=== PATIENT | male | born 1990 | race Caucasian/White ===

== ENCOUNTER 2016-09-14 03:54 | Emergency (ER) | payer BC ==
[~2016-09-14] VITALS: Ht 177.8 cm; Wt 99.8 kg
[~2016-09-14 03:54] MED LIST: ACHD5005 PO; AZIT-21 PO; BETABLOCKER; CETI-156 PO; CETI10CA PO; CYCL10TA9 PO; ENAL2.5T PO; LISI40TA PO; MELO-170 PO; METH4TAB PO; METO-333; METO25TA2 PO; NAPR-243 PO; NAPR550T PO; NF-METHYLP PO; ONDAN4ODT PO; PRD10T PO; PRM25T PO; SULF1TAB35 PO; SULF1TAB38 PO; TAMS0.4C98 PO
[2016-09-14] MEDS ORDERED: CIPR2.5D2 (04:07)
[2016-09-14] MEDS ORDERED: CLAR-19 (04:07)
[2016-09-14] MEDS ORDERED: LIDOCAINE 2% VISCOUS 15 ML UDC PO ONE (04:15)
[2016-09-14] MEDS ORDERED: ANTACID SUSP 30 ML UDC (MYLANTA) PO ONE (04:15)
--- NOTE | 2016-09-14 04:38 | ED Chest Pain ---
General Chief Complaint: Cardiac/General Problems Stated Complaint: NOT FEELING WELL,HEART HURTS Nursing Triage Note: SHARP EPIGASTRIC PAIN X2 HRS. "IMPROVES WITH BURPING." Nursing Sepsis Screen: No Definite Risk Source: patient History of Present Illness Time seen by provider: 04:10 Initial Comments PT ARRIVES VIA POV FROM HOME STATES HE IS HAVING "SHARP PAINS IN MY CHEST" --POINTS TO EPIGASTRIC AREA AND UPPER STERNAL AND UPPER LEFT CHEST PAIN BEGAN 2 HOURS AGO--WOKE HIM UP ALSO C/O SLIGHT SHORTNESS OF BREATH C/O NAUSEA,NO VOMITING NO PAIN NOW NO HISTORY OF SIMILAR NO COUGH NO SWELLING IN LEGS/ FEET OR PAIN IN CALVES HAS HAD HAD FEVER OF 101 C/O BILATERAL EAR PAIN SINCE Tuesday09/09/16 SEEN AT [facility] TODAY AND GIVEN RX FOR CLARITHROMYCIN--HAS NEVER TAKEN BEFORE PCP: DR. ZULUAGA Allergies and Home Medications Allergies Coded Allergies: Amoxicillin Trihydrate (Unverified Allergy, Intermediate, HIVES, 08/28/10) Potassium Clavulanate (Unverified Allergy, Intermediate, HIVES, 08/28/10) Doxycycline (Unverified Allergy, Mild, RAPID HR, FELT WEIRD, 08/28/10) Home Medications Cefdinir 300 Mg Capsule, 300 MG PO BID, #20 Prescribed by: YESENIA SOOD on 09/14/16 0530 Ciprofloxacin HCl 2.5 Ml Drops, #5 (Reported) Clarithromycin 500 Mg Tablet, #20 (Reported) Metoprolol Tartrate 25 Mg Tablet, #90 (Reported) Pantoprazole Sodium 40 Mg Tablet.dr, 40 MG PO DAILY, #15 Prescribed by: YESENIA SOOD on 09/14/16 0530 Review of Systems Constitutional: see HPI, fever EENTM: See HPI, Ear Pain, No Nose Congestion, No Throat Pain Respiratory: See HPI, Denies Cough, Shortness of Air Cardiovascular: See HPI, Chest Pain, Denies Edema, Denies Lightheadedness, Denies Palpitations, Denies Syncope Gastrointestinal: See HPI, Abdominal Pain, Nausea, Denies Vomiting Genitourinary: No Symptoms Reported Musculoskeletal: no symptoms reported Skin: no symptoms reported Psychiatric/Neurological: No Symptoms Reported Endocrine: No Symptoms Reported Hematologic/Lymphatic: No Symptoms Reported Past [place]-Naxekd-Xxkzpr Hx Patient Social History Alcohol Use: Denies Use Recreational Drug Use: No Smoking Status: Never a Smoker Recent Foreign Travel: No Contact w/Someone Who Travel: No Recent Infectious Disease Expo: No Recent Hopitalizations: No Immunizations Up To Date Tetanus Booster (TDap): Unknown Date of Influenza Vaccine: Jan 23, 2015 Seasonal Allergies Seasonal Allergies: Yes Surgeries HX Surgeries: Yes (WISDOM TEETH; KNEE SURGERY) Surgeries: Adenoidectomy, Orthopedic, Tonsillectomy Respiratory Hx Respiratory Disorders: No Cardiovascular Hx Cardiac Disorders: Yes (TACHYCARDIA) Cardiac Disorders: Hypertension Neurological Hx Neurological Disorders: No Reproductive System Hx Reproductive Disorders: No Sexually Transmitted Disease: No HIV/AIDS: No Genitourinary Hx Genitourinary Disorders: No Gastrointestinal Hx Gastrointestinal Disorders: No Musculoskeletal Hx Musculoskeletal Disorders: Yes (KNEE SX) Endocrine Hx Endocrine Disorders: No HEENT HX ENT Disorders: No Cancer Hx Cancer: No Psychosocial Hx Psychiatric Problems: Yes Behavioral Health Disorders: Anxiety Integumentary HX Skin/Integumentary Disorder: No Blood Transfusions Hx Blood Disorders: No Physical Exam Vital Signs Vital Sign - Last 12Hours 09/14/16 04:07 Temp 97.1 Pulse 96 Resp 18 B/P (MAP) 120/88 Pulse Ox 98 O2 Delivery Room Air Capillary Refill : Less Than 3 Seconds General Appearance: No Apparent Distress, WD/WN HEENT: PERRL/EOMI, Pharynx Normal, Other (TM'S INJECTED BILATERALLY) Neck: Full Range of Motion, Normal Inspection, Non Tender, Supple Respiratory: Normal Breath Sounds, No Accessory Muscle Use, No Respiratory Distress, Other (STERNUM AND LEFT UPPER CHEST TENDER TO PALPATION--REPRODUCES PAIN) Cardiovascular: Regular Rate, Rhythm, No Edema, No JVD, No Murmur, Normal Peripheral Pulses Gastrointestinal: Normal Bowel Sounds, No Organomegaly, No Pulsatile Mass, Soft , Tenderness (EPIGASTRIC TENDERNESS--PALPATION REPRODUCES PAIN ) Extremity: Normal Capillary Refill, Normal Inspection, Normal Range of Motion, Non Tender, No Calf Tenderness, No Pedal Edema Neurologic/Psychiatric: Alert, Oriented x3, No Motor/Sensory Deficits, Normal Mood/Affect, education rep II-XII Norm as Tested Skin: Normal Color, Warm/Dry Progress/Results/Core Measures Results/Orders My Orders Orders - YESENIA SOOD DO Ekg Tracing (09/14/16 04:12) Monitor-Rhythm Ecg Trace Only (09/14/16 04:12) Lidocaine 2% Viscous 15 Ml (Xylocaine Vi (09/14/16 04:15) Antacid Suspension (Mylanta Suspension (09/14/16 04:15) Chest Pa/Lat (2 View) (09/14/16 04:30) Pantoprazole Tablet (Protonix Tablet) (09/14/16 05:30) Medications Given in ED Current Medications Medications Dose Ordered Sig/[place] Route Start Time Stop Time Status Last Admin Dose Admin Al Hydrox/Mg Hydrox/Simethicone 30 ml ONCE ONCE PO 09/14/16 04:15 09/14/16 04:17 DC 09/14/16 04:17 30 ML Lidocaine HCl 15 ml ONCE ONCE PO 09/14/16 04:15 09/14/16 04:17 DC 09/14/16 04:17 15 ML Pantoprazole Sodium 40 mg ONCE ONCE PO 09/14/16 05:30 09/14/16 05:31 UNV 09/14/16 05:33 40 MG Vital Signs/I&O Vital Sign - Last 12Hours 09/14/16 04:07 Temp 97.1 Pulse 96 Resp 18 B/P (MAP) 120/88 Pulse Ox 98 O2 Delivery Room Air Blood Pressure Mean: 99 Progress Note : Progress Note NO SYMPTOMS DURING ER STAY ECG Initial ECG Impression Time: 04:20 Initial ECG Rate: 89 Initial ECG Rhythm: Normal Sinus Initial ECG Impression: Normal Initial ECG Comparisson: Unchanged Diagnostic Imaging Comments CXR--NO ACUTE PROCESS, PENDING RADIOLOGIST REVIEW Reviewed: Reviewed by Me Departure Impression Impression: Primary Impression: Chest wall pain Additional Impressions: Epigastric pain Bilateral otitis media POSSIBLE ADVERSE REACTION TO CLARITHROMYCIN Gastroesophageal reflux disease Disposition: 01 HOME, SELF-CARE Condition: Improved Departure-Patient Inst. Referrals: SABRINA ZULUAGA DO (PCP/Family) Primary Care Physician Patient Instructions: Acid Reflux (Gastroesophageal Reflux Disease), Adult (DC) , Chest Pain That Is Not Caused by the Heart (DC), Ear Infections (Otitis Media ) (DC), Low Blood Sugar, Adult (DC) Add. Discharge Instructions: STOP CLARITHROMCYIN TYLENOL AND MOTRIN NEEDED FOR PAIN OR FEVER LOTS OF CLEAR LIQUIDS FOLLOW UP WITH YOUR DR IN 2-3 DAYS FOR RECHECK RETURN TO ER IF WORSE All discharge instructions reviewed with patient and/or family. Voiced understanding. Scripts Cefdinir (Cefdinir) 300 Mg Capsule 300 MG PO BID for FOR INFECTION, #20 CAP Prov: YESENIA SOOD DO 09/14/16 Pantoprazole Sodium (Protonix) 40 Mg Tablet.dr 40 MG PO DAILY, #15 TAB Prov: YESENAI SOOD DO 09/14/16 YESENIA SOOD DO September 14, 2016 04:38
[2016-09-14] MEDS ORDERED: PANTOPRAZOLE 40 MG (PROTONIX) TAB PO ONE ×2 (05:29→05:30)
[2016-09-14] MEDS ORDERED: CEFD300C3 PO (05:30)
[2016-09-14] MEDS ORDERED: PANT40TA2 PO (05:30)
[2016-09-14 05:36] VITALS: BP 108/52
--- NOTE | 2016-09-14 06:05 | Diagnostic Imaging Report ---
PA and lateral chest at 521 hours. INDICATION: Chest pain. FINDINGS: The heart size is within normal limits and stable when compared to 12/24/12. The lungs are clear. There is no evidence for pneumonia or for pleural effusion and there is no sign of pneumothorax. The mediastinum is not widened. The osseous structures are intact. IMPRESSION: There is no evidence for active disease. Dictated by: Dictated on workstation # [id number]
== END 2016-09-14 05:34 | disposition home or self-care (01) ==
LOC: EDUNIT# 03:54 → ER 03:56
DX: R10.13 Epigastric pain (principal); R07.89 Other chest pain; K21.9 Gastro-esophageal reflux disease without esophagitis; H66.93 Otitis media, unspecified, bilateral; I10 Essential (primary) hypertension; Z79.899 Other long term (current) drug therapy
CPT/HCPCS: 71020; 93005; 93041